=== PATIENT | male | born 1945 | race Caucasian/White ===

== ENCOUNTER 2018-01-23 11:15 | Inpatient (IN) | payer MEDICARE ==
[~2018-01-23] VITALS: Ht 182.9 cm; Wt 75.6 kg
[2018-01-23] MEDS ORDERED: FOLI1TAB16 PO (11:22)
[2018-01-23] MEDS ORDERED: MEMA10TA PO (11:22)
[2018-01-23] MEDS ORDERED: MAG30ORA PO (11:22)
[2018-01-23] MEDS ORDERED: MULT1TAB73 PO (11:22)
[2018-01-23] MEDS ORDERED: TAMS-3 PO (11:22)
[2018-01-23] MEDS ORDERED: RISP1TAB7 PO (11:22)
[2018-01-23] MEDS ORDERED: ACET-2154 PO (11:22)
[2018-01-23] MEDS ORDERED: DEXT15DR6 EACHEYE (11:22)
[2018-01-23] MEDS ORDERED: IV NORMAL SALINE 500 ML BAG IV ONE (11:30)
[2018-01-23 11:48] LABS: BASOPHILS # (AUTO) 0.1 K/uL (0.0-8.0); BASOPHILS % (AUTO) 0.7 % (0.0-2.0); EOSINOPHILS # (AUTO) 0.1 K/uL (0.0-0.7); EOSINOPHILS % (AUTO) 1.3 % (0.0-7.0); HEMATOCRIT 48.1 % (36.7-47.1); HEMOGLOBIN 15.6 g/dL (12.5-16.3); LYMPHOCYTES # (AUTO) 1.1 K/uL (20.0-40.0); MEAN CORPUSCULAR HEMOGLOBIN 28.6 uug (23.8-33.4); MEAN CORPUSCULAR HGB CONC 33 g/dL (32.5-36.3); MEAN CORPUSCULAR VOLUME 87.8 fL (73.0-96.2); MONOCYTES # (AUTO) 0.5 K/uL (2.0-10.0); MONOCYTES % (AUTO) 6.2 % (0.0-11.0); NEUTROPHILS # (AUTO) 5.9 K/uL (1.8-8.9); NEUTROPHILS % (AUTO) 77.8 % (38.5-71.5); PLATELET COUNT (AUTO) 171 K/uL (152-348); RED BLOOD CELL COUNT(AUTO) 5.48 MIL/uL (4.06-5.63); WHITE BLOOD COUNT (AUTO) 7.6 K/uL (3.6-10.2)
[2018-01-23 11:58] LABS: CARBON DIOXIDE 30 mmol/L (21-32); CHLORIDE 100 mmol/L (98-107); CREATININE 0.9 mg/dL (0.6-1.3); GLUCOSE 69 mg/dL (74-106); POTASSIUM 4.3 mmol/L (3.5-5.1); UREA NITROGEN, BLOOD 17 mg/dL (7-18)
[2018-01-23 12:04] LABS: ACETAMINOPHEN 3.7 ug/mL (10-30); ALANINE AMINOTRANSFERASE 18 U/L (16-63); ALKALINE PHOSPHATASE 79 U/L (50-136); ASPARTATE AMINOTRANSFERASE 11 U/L (15-37); BILIRUBIN,DIRECT 0.2 mg/dL (0.0-0.2); BILIRUBIN,TOTAL 0.9 mg/dL (0.2-1.0); TOTAL PROTEIN, SERUM 6.8 g/dL (6.4-8.2)
[2018-01-23 12:07] LABS: ETHANOL < 3 MG/DL (0-0)
[2018-01-23 12:11] LABS: THYROID STIMULATING HORMONE 6.394 mIU/mL (0.358-3.740)
[2018-01-23] MEDS ORDERED: MAG HYDROX/AL HYDROX/SIMETH 30 ML LIQUID UDC PO PRN (12:30)
--- NOTE | 2018-01-23 12:38 | NUR ---
MSE COMPLETEED, PT WAS NOT ABLE TOMPROVIDE URINE, SBAR REPORT TO DOMO SERRATO, ABDULAZIZ STONE DONE, PT TRANSPORTED VIA [facility] TO [phone]
[2018-01-23] MEDS ORDERED: HYDROCODONE/APAP 5-325MG TABLET PO PRN (12:45)
[2018-01-23] MEDS ORDERED: ONDANSETRON 4 MG/2 ML VIAL IV PRN (12:45)
[2018-01-23] MEDS ORDERED: MAGNESIUM HYDROXIDE 30 ML LIQUID UDC PO PRN (12:45)
[2018-01-23] MEDS ORDERED: Z GUARD REMEDY PASTE 57 GM TUBE TOP PRN (12:45)
--- NOTE | 2018-01-23 12:53 | NUR ---
Admitted 72 y/o male from ER. Pt A&O to place only. Pt on RA, 95% O2Sat. VS: 98.1 65 18 146/82 0/10. SR on Tele. Pt noted with AMS and increased gen weakness at previous facility and was BIB ambulance. Pt appears confused but able to communicate basic needs when spoken to. Head CT negative. Stroke assessment in ED was negative. Noted with AROM to ext, W/C bound per transfer sheet from [facility]. LFA 20g heplock in place and patent. Denies pain. Oriented to unit, room, board, and call light. Reinforcement needed. Will continue to monitor.
[2018-01-23 14:00] VITALS: BP 142/70
[2018-01-23 15:16] VITALS: BP 149/73
[2018-01-23] MEDS: MEMANTINE HCL 10 MG TABLET PO SCH (18:08)
--- NOTE | 2018-01-23 19:30 | NUR ---
RECEIVED SHIFT REPORT FROM ROJELIO OLIVEROS. PT IN BED, NO DISTRESS NOTED. NSR ON TELE MONITORING. PT ORIENTED TO USE OF CALL LIGHT AND UNIT.
[2018-01-23 20:00] VITALS: BP 134/80
[2018-01-23] MEDS: IV D5 1/2 NS 1000 ML 1,000 ML IV PRN (20:38)
[2018-01-23] MEDS: risperiDONE 1 MG TABLET PO SCH (20:38)
[2018-01-23] MEDS: TAMSULOSIN HCL 0.4 MG CAP.SR.24H PO SCH (20:38)
--- NOTE | 2018-01-23 21:51 | NUR ---
PT'S SOP2 WAS 92%. ADMINISTERED O2 @ 2 LPM VIA N/C AT 2100, SPO2 NOW 97%. PT TOLERATING O2 WELL.
[2018-01-24] VITALS: BP 124/79
--- NOTE | 2018-01-24 01:19 | NUR ---
UNABLE TO INSERT STRAIGHT CATH. URINE SAMPLE COLLECTED VIA URINAL. COMPLETE LINEN CHANGE PROVIDED. PT STILL TOLERATING O2 WELL. PT NSR ON TELE MONITORING.
[2018-01-24 02:20] LABS: *AMPHETAMINE, URINE NEGATIVE (NEGATIVE); *BARBITURATE, URINE NEGATIVE (NEGATIVE); *CANNABINOID, URINE NEGATIVE (NEGATIVE); *COCCAINE, URINE NEGATIVE (NEGATIVE); *OPIATE, URINE NEGATIVE (NEGATIVE); *PHENCYCLIDINE SCREEN,URINE NEGATIVE (NEGATIVE)
[2018-01-24 02:21] LABS: *BILIRUBIN,URIN NEGATIVE (NEGATIVE); *BLOOD, URINE NEGATIVE (NEGATIVE); *KETONES,URINE NEGATIVE (NEGATIVE); *PROTEIN,URINE NEGATIVE (NEGATIVE); *UROBILINOGEN,URINE 0.2 E.U./dl (NORMAL); LEUKOCYTE ESTERASE ,URINE 3+ (NEGATIVE); NITRITE, URINE NEGATIVE (NEGATIVE); UGLUCOSE NEGATIVE (NEGATIVE)
[2018-01-24 02:25] LABS: *CLARITY,URINE HAZY (CLEAR); *COLOR,URINE STRAW (YELLOW)
[2018-01-24 02:39] LABS: BACTERIA,URINE MANY /HPF (NONE SEEN); RBC,URINE 0-3 /HPF (0-3); SQUAMOUS EPITHELIAL CELL,UR FEW /HPF (NONE SEEN); WBC,URINE TNTC /HPF (0-3)
[2018-01-24 04:00] VITALS: BP 114/69
[2018-01-24 06:08] LABS: BASOPHILS # (AUTO) 0.1 K/uL (0.0-8.0); BASOPHILS % (AUTO) 0.8 % (0.0-2.0); EOSINOPHILS # (AUTO) 0.2 K/uL (0.0-0.7); EOSINOPHILS % (AUTO) 3.1 % (0.0-7.0); HEMATOCRIT 45.8 % (36.7-47.1); HEMOGLOBIN 14.9 g/dL (12.5-16.3); LYMPHOCYTES # (AUTO) 1.4 K/uL (20.0-40.0); MEAN CORPUSCULAR HEMOGLOBIN 28.6 uug (23.8-33.4); MEAN CORPUSCULAR HGB CONC 33 g/dL (32.5-36.3); MEAN CORPUSCULAR VOLUME 87.8 fL (73.0-96.2); MONOCYTES # (AUTO) 0.6 K/uL (2.0-10.0); MONOCYTES % (AUTO) 8.7 % (0.0-11.0); NEUTROPHILS # (AUTO) 4.5 K/uL (1.8-8.9); NEUTROPHILS % (AUTO) 66.4 % (38.5-71.5); PLATELET COUNT (AUTO) 157 K/uL (152-348); RED BLOOD CELL COUNT(AUTO) 5.22 MIL/uL (4.06-5.63); WHITE BLOOD COUNT (AUTO) 6.7 K/uL (3.6-10.2)
[2018-01-24 06:14] LABS: CARBON DIOXIDE 28 mmol/L (21-32); CHLORIDE 106 mmol/L (98-107); CREATININE 0.9 mg/dL (0.6-1.3); GLUCOSE 89 mg/dL (74-106); MAGNESIUM 2.3 mg/dL (1.8-2.4); PHOSPHOROUS 4.2 mg/dL (2.5-4.9); POTASSIUM 4.4 mmol/L (3.5-5.1); UREA NITROGEN, BLOOD 17 mg/dL (7-18)
--- NOTE | 2018-01-24 07:33 | NUR ---
Rec'd pt in bed awake watching TV, talking to himself. On 2L/min via n/c, no SOB noted. On monitoring for AMS and increased weakness. Pt without significant events overnight. Pt continues to be confused. Able to communicate basic needs at times. Taking PO fluids well. Receiving D5 1/2 NS @75ml/hr to LFA 20g IV. No s/s of complications to IV site. SR on Tele. Per report, UA positive. Afebrile at this time. All safety precautions in place. Will continue to monitor.
[2018-01-24] MEDS: MEMANTINE HCL 10 MG TABLET PO SCH ×2 (08:14→16:35)
[2018-01-24] MEDS: risperiDONE 1 MG TABLET PO SCH ×2 (08:14→20:29)
[2018-01-24] MEDS: MULTIVITAMINS,THERAPEUTIC TABLET PO SCH (08:14)
[2018-01-24] MEDS: FOLIC ACID 1 MG TABLET PO SCH (08:14)
[2018-01-24] MEDS: IV D5 1/2 NS 1000 ML 1,000 ML IV PRN (08:45)
[2018-01-24] MEDS ORDERED: Medication Not On Formulary EA (Multivitamins (Multivitamin) 1 EACH) PO SCH (09:00)
[2018-01-24 11:05] VITALS: BP 118/71
[2018-01-24] MEDS ORDERED: CEFTRIAXONE 1 G in IV DEXTROSE 5% 50 ML IV SCH (12:00)
--- NOTE | 2018-01-24 12:27 | NUR ---
Pt seen and examined by Dr. Angeles.
[2018-01-24] MEDS: POLYVINYL ALCOHOL OPHT DROPS 15 ML BOTTLE EACHEYE SCH ×2 (13:39→16:35)
[2018-01-24 15:09] VITALS: BP 129/74
--- NOTE | 2018-01-24 18:21 | NUR ---
Found pt's IV on the floor. When asked why he pulled out his IV, pt refused to answer. Inserted new IV site to RFA, 22g. Ruth well. New site without s/s of complications noted. Wrapped with Kerlix to prevent pt from pulling/tugging on it. Educated pt on risks vs benefits of his IV access but pt continues to be confused. Will continue to reinforce. All safety precautions in place.
--- NOTE | 2018-01-24 18:45 | NUR ---
Noted pt had removed the new IV access again. Found pt's IV and Kerlix on the floor next to bed. Attempted to reinsert new IV access, however pt started to become combative and agitated. [place] [facility] [place]. All safety precautions in place.
--- NOTE | 2018-01-24 18:53 | NUR ---
Spoke with Dr. Stewart and relayed pt's behavior. Obtained new order for Ativan 1mg PO Q6hrs PRN for Anxiety/Agitation. T.O. read back to and verified. Noted and carried out.
[2018-01-24] MEDS ORDERED: LORAZEPAM 1 MG TABLET PO PRN (19:00)
[2018-01-24 20:00] VITALS: BP 122/59
--- NOTE | 2018-01-24 20:00 | NUR ---
RECEIVED PATIENT AWAKE IN BED. ALERT TO SELF ONLY. VERY CONFUSED AND DISORIENTED. NEEDS FREQUENT REDIRECTION. PATIENT IS ANXIOUS AND EASILY AGITATED. REPORTED PER DAYSHIFT THAT PATIENT PULLED OUT IV 3 TIMES PRIOR TO SHIFT CHANGE. WILL ATTEMPT TO RESTART ONCE PATIENT CALMS DOWN. NO S/S OF PAIN OR DISCOMFORT. NO RESP. DISTRESS NOTED. VS WNL. BED ALARM ON. CALL LIGHT IN REACH. ALL NEEDS ATTENDED. WILL CONTINUE TO MONITOR.
[2018-01-24] MEDS: TAMSULOSIN HCL 0.4 MG CAP.SR.24H PO SCH (20:29)
--- NOTE | 2018-01-24 21:45 | NUR ---
KWESI, PARTS COUNTER SALESPERSON AT [facility] AND AWARE THAT PATIENT IS REFUSING IN INSERTION. NOTIFIED PARTS COUNTER SALESPERSON THAT IV WILL TRY TO BE RESTARTED ONCE PATIENT CALMS DOWN. WILL CONTINUE TO MONITOR.
--- NOTE | 2018-01-24 22:30 | NUR ---
PATIENT QUIET AND DOZING ON AND OFF IN BED. APPROACHED PATIENT TO REINSERT IV HEPLOCK. PATIENT BECAME VERY AGITATED AND YELLED OUT, "I DON'T WANT IT." NOTIFIED [employer] SYSTEM ADMINISTRATOR AND ALSO CALLED OUT TO DR. NAGEL AND RECEIVED VERBAL ORDER TO D/C IVF AND OK TO CHANGE IV ANTIBIOTICS TO PO. ALL NEEDS ATTENDED. WILL CONTINUE TO MONITOR.
--- NOTE | 2018-01-24 22:55 | NUR ---
CALLED BACK TO DEE DEE OROSCO WHO IS THE ACTUAL ONE ON-CALL TONIGHT TO NOTIFY HIM ABOUT BEING UNABLE TO REINSERT PATIENTS IV HEPLOCK AND ALSO LET HIM KNOW THAT DR. NAGEL SAID OKAY TO D/C IVF AND TO CHANGE IV ANTIBIOTIC TO PO. CALLED TO NOTIFY KWESI FUNEZ THAT ROCEPHIN IS EITHER IV OR IM. KWESI STATED HE WILL FOLLOW UP AND CHANGE. DEAN OF [place] NOTIFIED.
--- NOTE | 2018-01-25 00:41 | NUR ---
PATIENT ASLEEP. NO RESP. DISTRESS NOTED. BED ALARM ON. ALL NEEDS ATTENDED.
[2018-01-25] MEDS: LORAZEPAM 1 MG TABLET PO PRN ×3 (01:32→17:03)
[2018-01-25 03:37] VITALS: BP 102/61
--- NOTE | 2018-01-25 06:40 | NUR ---
PATIENT ASLEEP IN BED. VSS. SLEPT WELL. BED ALARM ON. CALL LIGHT IN REACH. ALL NEEDS ATTENDED. WILL CONTINUE TO MONITOR AND ASSESS.
--- NOTE | 2018-01-25 08:00 | NUR ---
AWAKE CONFUSED FORGETFUL ORTX1 TO NAME ON FALL /ASPIRATION PRECAUTION CONT O2 AT 2L O2 SAT WNL EAT BREAKFAST WITH GOOD APPETITE PO FLD COCO WELL BED ALARM ON AND CALL LIGHT IN REACH
[2018-01-25] MEDS: MEMANTINE HCL 10 MG TABLET PO SCH ×2 (08:20→17:02)
[2018-01-25] MEDS: ACETAMINOPHEN 325 MG TABLET PO PRN ×2 (08:20→14:39)
[2018-01-25] MEDS: risperiDONE 1 MG TABLET PO SCH ×2 (08:20→21:08)
[2018-01-25] MEDS: MULTIVITAMINS,THERAPEUTIC TABLET PO SCH (08:20)
[2018-01-25] MEDS: FOLIC ACID 1 MG TABLET PO SCH (08:20)
[2018-01-25] MEDS: POLYVINYL ALCOHOL OPHT DROPS 15 ML BOTTLE EACHEYE SCH ×3 (08:21→17:02)
--- NOTE | 2018-01-25 09:00 | NUR ---
DR NAGEL INFORM OF NO IV LINE NEED TO CHANGE ANTIBIOTICS TO PO /DR [place]
[2018-01-25 11:10] VITALS: BP 112/55
[2018-01-25] MEDS: CEPHALEXIN MONOHYDRATE 500 MG CAPSULE PO SCH ×2 (12:40→21:08)
[2018-01-25 15:14] VITALS: BP 100/61
--- NOTE | 2018-01-25 18:00 | NUR ---
STABLE HEMODYNAMIC ,NO ACUTE DISTRESS PAIN UNDER CONTROL SAFETY MEASURE PROVIDED BED ALARM ON AND CALL LIGHT IN REACH CLOSED OBSERVATION
--- NOTE | 2018-01-25 19:52 | NUR ---
RECEIVED PT LYING IN BED. AAOX1, MAINLY CONFUSED. IN NO ACUTE DISTRESS. BED IN LOW AND LOCK POSITION. SAFETY MEASURE INITIATED NAD CALL SAUCEDO WITHIN REACH.
[2018-01-25 20:30] VITALS: BP 122/68
[2018-01-25] MEDS: TAMSULOSIN HCL 0.4 MG CAP.SR.24H PO SCH (21:08)
[2018-01-26] MEDS: ACETAMINOPHEN 325 MG TABLET PO PRN (03:14)
[2018-01-26] MEDS: LORAZEPAM 1 MG TABLET PO PRN ×2 (03:15→08:07)
[2018-01-26 04:37] VITALS: BP 126/76
[2018-01-26] MEDS: CEPHALEXIN MONOHYDRATE 500 MG CAPSULE PO SCH (06:01)
--- NOTE | 2018-01-26 06:06 | NUR ---
AAOX1-2, WITH CONFUSION. ABLE TO MAKE NEEDS KNOWN. IN NO ACUTE DISTRESS. VS WNL. NO ADVERSE REACTION NOTED FROM PO ABX. ASPIRATION PRECAUTION OBSERVED. SAFETY MEASURE MAINTAINED AND CALL SAUCEDO WITHIN REACH.
[2018-01-26] MEDS: FOLIC ACID 1 MG TABLET PO SCH (08:01)
[2018-01-26] MEDS: MEMANTINE HCL 10 MG TABLET PO SCH (08:01)
[2018-01-26] MEDS: risperiDONE 1 MG TABLET PO SCH (08:01)
[2018-01-26] MEDS: POLYVINYL ALCOHOL OPHT DROPS 15 ML BOTTLE EACHEYE SCH (08:01)
[2018-01-26] MEDS: MULTIVITAMINS,THERAPEUTIC TABLET PO SCH (08:01)
[2018-01-26] MEDS ORDERED: CEPH500C2 PO (08:43)
[2018-01-26 11:27] VITALS: BP 123/74
--- NOTE | 2018-01-26 12:00 | NUR ---
Pt d/c back to [facility] per case management set up Spoke with Jayleen SERRATO in charge report given. Pt is in no acute distress upon discharge. Updated pix taken of pt's skin.
== END 2018-01-26 12:00 | DRG 689 ==
LOC: ER 11:15 → TELE 12:41 → MED 01-24 11:34
PROVIDERS: ADMIT Internal Medicine; ATTEND Internal Medicine
DX: N39.0 Urinary tract infection, site not specified (principal); G92 Toxic encephalopathy; J44.9 Chronic obstructive pulmonary disease, unspecified; F20.9 Schizophrenia, unspecified; E03.9 Hypothyroidism, unspecified; E11.9 Type 2 diabetes mellitus without complications; E78.5 Hyperlipidemia, unspecified; F03.90 Unspecified dementia, unspecified severity, without behavioral disturbance, psychotic disturbance, mood disturbance, and anxiety; I10 Essential (primary) hypertension; R13.10 Dysphagia, unspecified; N40.1 Benign prostatic hyperplasia with lower urinary tract symptoms; B95.1 Streptococcus, group B, as the cause of diseases classified elsewhere
CPT/HCPCS: 36415; 70030-TC; 70450; 71045; 80307; 83735; 84100; 84443; 85025; 85730; 87086; 93005; A4663; G0480; G0480-TC; J0696; J3490; J7040; J7060